=== PATIENT | female | born 1960 ===

== ENCOUNTER 2016-12-09 09:30 | Day surgery (SDC) | payer OTHER ==
[2016-12-09] MEDS ORDERED: Lactated Ringer's 1,000 ML IV SCH (10:00)
[2016-12-09 10:37] VITALS: O2SAT 100
[2016-12-09] MEDS ORDERED: Propofol 10 mg/ml Inj (20 ML) ONE (10:49)
[2016-12-09] MEDS ORDERED: Lidocaine Hydrochloride 5 ML INJ ONE (10:51)
[2016-12-09 11:34] VITALS: TEMP 97.3
[2016-12-09 11:36] VITALS: RESP 14
[2016-12-09 12:38] VITALS: PULSE 51
[2016-12-09 12:43] VITALS: BP 113/70
== END 2016-12-09 12:20 | disposition home or self-care (01) ==
LOC: C.ENDO 09:30
PROVIDERS: ATTEND Internal Medicine Gastroenterology
DX: K21.9 Gastro-esophageal reflux disease without esophagitis (principal)
CPT/HCPCS: 43239; 88305; J2704; J7120